=== PATIENT | male | born 1980 | race Caucasian/White ===

== ENCOUNTER 2025-03-23 06:30 | Emergency (ER) | payer BC, SELFPAY ==
[2025-03-23 06:30] VITALS: BMI 23.9
[2025-03-23 06:32] VITALS: BP 146/96
--- NOTE | 2025-03-23 06:36 | ED.GENMED ---
History of Present Illness
General
Chief Complaint: Skin Surface Trauma
Time Seen by Provider: 03/23/25 06:36
History of Present Illness
History of Present Illness:
TIME OF INITIAL ENCOUNTER: 6:38 AM
HPI: Patient cut his right hand on broken glass from a franchesca jar. The patient primarily complains of bleeding wound to the ulnar aspect of the right hand and also has smaller wounds on the fingers. He did pull out some glass to the larger wound.
He does not have any ongoing sensation of foreign body and there is no dysfunction of the hand/fingers.
EXAM:
GENERAL: Well appearing in no distress
HEENT: Moist oral mucosa
NEUROLOGIC: Excellent strength all extremities, no obvious coordination deficits
PSYCHIATRIC: Appropriate mental status, normal insight and judgement
EXTREMITIES: There is a 2 cm laceration to the ulnar aspect of the right hand, there are multiple very superficial lacerations to the fingers of the right hand, no loss of function, excellent strength in flexion and extension, no evidence of foreign
body
SKIN: No rash, no lesions
NUMBER AND COMPLEXITY OF PROBLEMS ADDRESSED AT THE ENCOUNTER
� Chronic conditions affecting care: No significant past medical history
� Acute Exacerbation and/or Progression of Chronic Illness: This is an acute problem
� Differential Diagnosis includes: Retained foreign body, no clinical evidence for tendon involvement, laceration
AMOUNT AND/OR COMPLEXITY OF DATA TO BE REVIEWED AND ANALYZED
� I performed an independent evaluation of and my interpretation is:
EKG:
CT:
X-rays:
Laboratory Studies:
Other:
� Review of other/old records: I reviewed records, the patient was seen in 2019 with palpitations
� Clinical information was obtained by an independent historian: I spoke to mother at bedside
� Prescriptions/Medications Considered but not given:
� Further testing considered but not performed:
RISK OF COMPLICATIONS AND/OR MORBIDITY OR MORTALITY OF PATIENT MANAGEMENT
� Social determinants of health affecting care: Lives at home
� Discussion with other providers:
� Escalation of care including admission/observation vs risk of discharge considered: I sutured the larger wound and placed some glue on the very superficial wounds of the fingers
ANY OTHER UPDATES:
Patient tolerated procedure well. I see no evidence of foreign body on careful close inspection of the wounds. He has no sensation of foreign body. This function is excellent. Updated tetanus.
Past History
Past History
ED Past Medical History: None
ED Past Surgical History: None
Social History
Tobacco: Smoker
Alcohol: None
Drug: None
Personal:
Living: with family
Employment: Employed
Phy Exam
Physical Exam
Physical Exam:
See HPI
Course
Orders/Labs/Results
Orders:
Orders
03/23/25 06:56
Tetanus/Diphth/Acelpertussis [Adacel] 0.5 ml IM .ONCE ONE
Vital Signs
Initial and Last Documented VS:
Initial Vital Signs
Temp Pulse Resp BP Pulse Ox
36.6 C 96 18 146/96 100
03/23/25 06:32 03/23/25 06:32 03/23/25 06:32 03/23/25 06:32 03/23/25 06:32
Last Documented Vital Signs
Temp Pulse Resp BP Pulse Ox
36.6 C 96 18 146/96 100
03/23/25 06:32 03/23/25 06:32 03/23/25 06:32 03/23/25 06:32 03/23/25 06:32
Procedures
Laceration Closure
Right Ulnar Hand:
Status of Wound: clean
Size of Wound in cm: 2
Description of Wound Edges: sharp
Preparation: cleaned with saline
Anesthesia: 1% Lidocaine with epi
Revision/Debridement: routine- no revision
Wound exploration: explored to base- no FB
Type of Closure: single layer closure
Skin Closure Material: 4-0 nylon
Number of sutures: 4
Right Finger:
Status of Wound: clean
Size of Wound in cm: 3
Description of Wound Edges: other (Very superficial wound)
Preparation: cleaned with saline
Type of Closure: other (Mastisol tissue adhesive)
*Critical Care Note
Total Time (30-74mins, 75-104mins- exclusive of procedures): Not Applicable
ED Attending Note
-
Portions of this chart may have been created with voice recognition software.� Occasional wrong word or��sound alike� substitutions may have occurred due to the inherent limitations of voice recognition software.
Discharge Plan
Departure
Patient Disposition: Home (Routine Discharge)
Date of Disposition: 03/23/25
Time of Disposition: 06:56
Patient with high blood pressure during this ER visit?: Yes
Discharge Problem:
Hand laceration
Instructions: Laceration Repair With Glue (DC), Laceration Repair With Stitches (DC), BLOOD PRESSURE
Prescriptions:
No Action
No Current Medications
0
Activity Restrictions/Additional Instructions:
Have stitches removed in approximately 7 to 10 days by your primary care doctor. Return here if worse or other concerns.
Interventions
Interventions:
*Risk Screen - Suicide Last Done: 03/23/25 06:32
*Neglect/Abuse Screening Last Done: 03/23/25 06:32
ED-Skin Assessment Last Done: 03/23/25 06:50
Discharge Date and Time
Print Language: KHMER
[2025-03-23] MEDS: ADACEL 0.5 ML IM (07:06)
== END 2025-03-23 07:11 | disposition home or self-care (01) ==
LOC: EMR 06:30
PROVIDERS: EMERGENCY PHYSICIAN Emergency Medicine
DX: S61.411A Laceration without foreign body of right hand, initial encounter (principal); W25.XXXA Contact with sharp glass, initial encounter; F17.200 Nicotine dependence, unspecified, uncomplicated; Z23 Encounter for immunization
CPT/HCPCS: 12001; 99282; 90471; 90715

== ENCOUNTER 2025-09-08 14:43 | Emergency (ER) | payer BC, SELFPAY ==
[2025-09-08 14:49] VITALS: BP 154/103
[2025-09-08 15:46] LABS: Hematocrit 42.9 % (39.0-52.0); Hemoglobin 15.2 g/dL (13.0-18.0); Mean Corp Hgb Conc. 35.4 g/dL (33.0-37.0); Mean Corpuscular Volume 86.1 fL (80.0-94.0); Nucleated Red Blood Cells % 0 % (-); Platelet Count 265 10^3/uL (130-400); Red Cell Dist. Width 12.0 % (11.5-14.5)
[2025-09-08 16:03] LABS: ALT (SGPT) 30 U/L (0-50); AST (SGOT) 26 U/L (17-59); Albumin 5.0 g/dl (3.5-5.0); Alkaline Phosphatase 63 U/L (38-126); Blood Urea Nitrogen 13 mg/dl (9-20); Calcium 9.6 mg/dl (8.4-10.2); Carbon Dioxide 28 mmol/L (22-30); Chloride 102 mmol/L (98-107); Glucose 124 mg/dl (70-99); Potassium 4.3 mmol/L (3.5-5.1); Sodium 136 mmol/L (135-145); Total Protein 8.1 g/dl (6.3-8.2); eGFR > 60.00
--- NOTE | 2025-09-08 16:14 | ED.GENMED ---
History of Present Illness
<Vandana Townsend MD, Resident - Last Filed: 09/08/25 16:53>
General
Chief Complaint: Chest Pain
Source: patient and significant other
Exam Limitations: none
Time Seen by Provider: 09/08/25 16:04
History of Present Illness
History of Present Illness:
45yo M with no significant PMH who presents following an episode of palpitations and lightheadedness, along with malaise this am & a painful region on his buttocks.
Pt reports that he woke up this morning feeling 'off.' While he was driving, he experienced an episode of palpitations/racing heart, which was accompanied by tingling/paresthesias down L arm. Denies any pain in his chest, simply endorsing a
sensation of feeling hot/warm during the episode. He also felt lightheaded during the episode. Denies any dehydration different from typical baseline, denies any SOB. One prior episode ~5yrs ago with palpitations, came to ED, was dehydration. Has a
fam hx of early from [place] in paternal grandfather & grandfather's brother (53 & 43yo). No personal hx of palpitations or CP elicited by physical activity. Endorses feeling very anxious during the episode today.
Pt also reports that he noticed a cyst in his R-sided gluteal crease about 2mo ago. About 1mo ago, the area burst and fluid drained out. Pt did not put any topicals or bandages on, left it be. Since then, the area has become increasingly painful to
the touch. Denies any fevers/chills. Denies any pain in R leg. Denies any sensation of warmth in the area.
Past History
<Vandana Townsend MD, Resident - Last Filed: 09/08/25 16:53>
Past History
ED Past Medical History: None
ED Past Surgical History: None
Social History
Tobacco: Smoker
Alcohol: None
Drug: None
Personal:
Living: with family
Employment: Employed
Review of Systems
<Vandana Townsend MD, Resident - Last Filed: 09/08/25 16:53>
Review of Systems
Allergies reviewed?: Yes
All Other Systems: ROS reviewed and negative except as documented in HPI and ROS
Constitutional: Reports fatigue
EENT: Reports no symptoms
Respiratory: Reports no symptoms
Cardiac: Reports palpitations
ABD/GI: Reports no symptoms
: Reports no symptoms
Musculoskeletal: Reports no symptoms
Skin: Reports other (gluteal cleft wound)
Neurological: Reports other (lightheaded)
Psychiatric: Reports no symptoms
Phy Exam
<Vandana Townsend MD, Resident - Last Filed: 09/08/25 16:53>
General Physical Exam
General Presentation: well appearing
General age: appears stated age
General Skin: warm and dry
General Habitus: normal
General Mental: alert
General Hydration: appears well hydrated
Cardiovascular Exam
Cardiovascular Exam: no edema and other (mild tachycardia)
Heart Sounds: normal
Pulmonary Exam
Pulmonary Exam: lungs clear and no respiratory distress
Gastrointestinal Exam
Gastrointestinal Exam: non tender, soft and non distended
Neurological Exam
Neurological Exam: alert
Skin Exam
Skin Exam: other (superficial erythematous wound in gluteal cleft on R side; without region of fluctuance, induration, or surrounding erythema )
Psychiatric Exam
Psychiatric Exam: anxious
Scores
<Vandana Townsend MD, Resident - Last Filed: 09/08/25 16:53>
Heart Score for Chest Pain Patients
STEMI patient?: Not applicable
Course
<Vandana Townsend MD, Resident - Last Filed: 09/08/25 16:53>
Orders/Labs/Results
Orders:
Orders
09/08/25 14:44
EKG [Electrocardiogram (*1)] Urgent
Reason for Study: Chest Pain
EKG- Treatment ONCE
09/08/25 15:38
CMP [Comprehensive Metabolic Panel] Urgent
Complete Blood Count/With Diff Urgent
Troponin I Urgent
Abnormal Lab Results
09/08/25
15:38
WBC 16.3 H 10^3/uL
(4.8-10.8)
Abs Immat Gran (auto) 0.1 H 10^3/uL
(0-0.05)
Absolute Neuts (auto) 13.7 H 10^3/uL
(1.4-6.5)
Absolute Monos (auto) 0.7 H 10^3/uL
(0.1-0.6)
Immature Gran % 0.6 H %
(0-0.5)
Neutrophils % 84.0 H %
(42.2-75.2)
Lymphocytes % 10.7 L %
(20.5-51.1)
Glucose 124 H mg/dl
(70-99)
09/08/25 15:38
09/08/25 15:38
Vital Signs
Initial and Last Documented VS:
Initial Vital Signs
Temp Pulse Resp BP Pulse Ox
99.3 F 124 18 154/103 100
09/08/25 14:49 09/08/25 14:49 09/08/25 14:49 09/08/25 14:49 09/08/25 14:49
Last Documented Vital Signs
Temp Pulse Resp BP Pulse Ox
99.3 F 94 16 148/92 97
09/08/25 14:49 09/08/25 16:45 09/08/25 16:45 09/08/25 16:27 09/08/25 16:45
<Tyson Ortega, DO - Last Filed: 09/08/25 16:51>
Orders/Labs/Results
Orders:
Orders
09/08/25 14:44
EKG [Electrocardiogram (*1)] Urgent
Reason for Study: Chest Pain
EKG- Treatment ONCE
09/08/25 15:38
CMP [Comprehensive Metabolic Panel] Urgent
Complete Blood Count/With Diff Urgent
Troponin I Urgent
Abnormal Lab Results
09/08/25
15:38
WBC 16.3 H 10^3/uL
(4.8-10.8)
Abs Immat Gran (auto) 0.1 H 10^3/uL
(0-0.05)
Absolute Neuts (auto) 13.7 H 10^3/uL
(1.4-6.5)
Absolute Monos (auto) 0.7 H 10^3/uL
(0.1-0.6)
Immature Gran % 0.6 H %
(0-0.5)
Neutrophils % 84.0 H %
(42.2-75.2)
Lymphocytes % 10.7 L %
(20.5-51.1)
Glucose 124 H mg/dl
(70-99)
09/08/25 15:38
09/08/25 15:38
Vital Signs
Initial and Last Documented VS:
Initial Vital Signs
Temp Pulse Resp BP Pulse Ox
99.3 F 124 18 154/103 100
09/08/25 14:49 09/08/25 14:49 09/08/25 14:49 09/08/25 14:49 09/08/25 14:49
Last Documented Vital Signs
Temp Pulse Resp BP Pulse Ox
99.3 F 94 16 148/92 97
09/08/25 14:49 09/08/25 16:45 09/08/25 16:45 09/08/25 16:27 09/08/25 16:45
<Vandana Townsend MD, Resident - Last Filed: 09/08/25 16:53>
MDM/Problems Addressed
Differential Diagnosis Includes:
Ddx:
SSTI from wound in gluteal cleft (likely 2/2 ruptured pilonidal cyst), precipitating palpitations/lightheadedness/warmth (elevated WBC, known source)
Palpitations 2/2 orthostasis, anxiety
[place] (r/o w EKG, troponin wnl)
Arrhyhmia (ongoing abnormal rhythm r/o w EKG)
MDM/Problems Addressed:
- EKG, troponin
- Empiric abx for SSTI (cefazolin + metronidazole given area exposed to fecal material)
- Instructions to keep wound clean/dry
- Instructions to f/u with primary and consider holter monitoring outpatient
<Vandana Townsend MD, Resident - Last Filed: 09/08/25 16:53>
*Pulse Oximetry
SaO2: 100
Oxygen Mode of Delivery: Room air
Patient hypoxic: no
*Critical Care Note
Total Time (30-74mins, 75-104mins- exclusive of procedures): Not Applicable
ED Attending Note
<Vandana Townsend MD, Resident - Last Filed: 09/08/25 16:53>
-
Portions of this chart may have been created with voice recognition software.� Occasional wrong word or��sound alike� substitutions may have occurred due to the inherent limitations of voice recognition software.
<Tyson Ortega, DO - Last Filed: 09/08/25 16:51>
ED Attending Note
Patient seen and examined by attending physician: Yes
I performed a history and physical exam of patient and discussed management with resident, I reviewed resident's note and agree with documented findings and plan of care.: Yes
ED Attending Note:
I have seen and evaluated the patient with a [id number] encounter. I have spoken to the resident and involved in the medical history, the physical exam, medical decision making.
Evaluation and management service: agree unless noted differently below.
Results interpretation: agree unless noted differently below.
Focused HPI: 45-year-old male presenting with several months of intermittent buttock pain and derangement. Patient got nervous today as he started developed palpitations today. Symptoms are not exertional
Physical exam: Sitting in bed comfortably. Evidence of pilonidal cyst without significant cellulitis
Medical Decision Making: Story and exam are consistent with likely intermittent draining from his chronic pilonidal abscess/cyst. Will start antibiotics we discussed follow-up with general surgery for definitive management. From a palpitation
standpoint, EKG is nonischemic without ectopy and troponin is negative. Discussed outpatient Holter monitor
Discharge Plan
Departure
Patient Disposition: Home (Routine Discharge)
Date of Disposition: 09/08/25
Time of Disposition: 16:53
Patient with high blood pressure during this ER visit?: Yes
Condition: Good
Covid-19: Not Applicable
Discharge Problem:
Bacterial skin infection, Heart palpitations
Instructions: Wound Care (DC)
Prescriptions:
New
metronidazole 500 mg tablet
500 mg PO Q8H 5 Days Qty: 15 0RF
cephalexin 500 mg capsule
500 mg PO QID 5 Days Qty: 20 0RF
Referrals:
Vasile Nuñez MD [Active, Surgical] - Follow up in 1 week
Referral Note: eval suspected pilonidal cyst
Activity Restrictions/Additional Instructions:
You were seen in the ED today for an episode of heart palpitations and a wound on your buttocks. Testing (EKG & troponins) were not concerning for an ischemic heart event like a heart attack. Your labs demonstrated an elevated WBC (often high in
infections) and you have an open skin wound in your gluteal cleft.
We have prescribed a course of antibiotics to cover a potential infection from your wound. Take cephalexin (500mg 4x/day for 5 days) & metronidazole (500mg every 8 hours for 5 days). Follow up with a general surgeon (referral information provided)
for evaluation of potential pilonidal cyst removal. You may treat the area with warm compresses and sitz baths. Aim to keep the wound area clean and dry.
We also recommend that you follow up with your primary care provider for outpatient holter monitoring to check for any arrhythmias.
Interventions
Interventions:
*Risk Screen - Suicide Last Done: 09/08/25 14:49
*General Assessment Last Done: 09/08/25 16:16
*Neglect/Abuse Screening Last Done: 09/08/25 14:49
*ED- Fall Risk Assessment Last Done: 09/08/25 16:16
*ED COVID-19 Vaccine History Last Done: 09/08/25 14:49
*ED Influenza Vaccine History Last Done: 09/08/25 14:49
ED- Cardiac Assessment Last Done: 09/08/25 16:19
ED-Skin Assessment Last Done: 09/08/25 16:19
Discharge Date and Time
Print Language: HONG KONGER
[2025-09-08 16:16] VITALS: BMI 25.7
[2025-09-08 16:17] LABS: Troponin I < 0.012 ng/ml
[2025-09-08 16:27] VITALS: BP 148/92
== END 2025-09-08 17:06 | disposition home or self-care (01) ==
LOC: EMR 14:43
PROVIDERS: Student in an Organized Health Care Education/Training Program; EMERGENCY PHYSICIAN Student in an Organized Health Care Education/Training Program
DX: L05.01 Pilonidal cyst with abscess (principal); B96.89 Other specified bacterial agents as the cause of diseases classified elsewhere; R00.2 Palpitations; R03.0 Elevated blood-pressure reading, without diagnosis of hypertension; F17.200 Nicotine dependence, unspecified, uncomplicated; Z82.49 Family history of ischemic heart disease and other diseases of the circulatory system
CPT/HCPCS: 99284; 80053; 84484; 85025; 93005